=== PATIENT | male | born 1970 | race Caucasian/White ===

== ENCOUNTER → 2020-05-15 | Emergency (ER) | payer BC, OTHER ==
[~2020-05-15] VITALS: Ht 177.8 cm; Wt 127.0 kg
[~2020-05-15] MED LIST: BACTRIM DS TAB1 EACH PO; HUMALOG100 UNIT/1 SUBQ; LANTUS SUBQ; PREDNISONE 20 M20 M1 PO; PROAIR HFA8.5 GM INH
[2020-05-15 15:40] VITALS: BP 138/94
== END ==
LOC: M.ERS 14:23
DX: L08.89 Other specified local infections of the skin and subcutaneous tissue (principal); T36.0X5A Adverse effect of penicillins, initial encounter; E11.9 Type 2 diabetes mellitus without complications; Z91.040 Latex allergy status; Y92.89 Other specified places as the place of occurrence of the external cause